=== PATIENT | female | born 1965 ===

== ENCOUNTER 2017-05-05 11:09 | Emergency (ER) | payer MEDICAID ==
[2017-05-05 11:10] VITALS: BMI 32.5
[2017-05-05 11:21] VITALS: O2SAT 96
[2017-05-05] MEDS ORDERED: Sodium Chloride 0.9% 1,000 ML IV ONE (12:09)
[2017-05-05] MEDS ORDERED: Sodium Chloride 0.9% 1,000 ML ONE (12:28)
[2017-05-05 12:29] LABS: BASO % 0.5 % (0.0-2.0); EOS # 0.1 K/uL (0.0-0.7); EOS % 0.9 % (0.0-4.0); HEMATOCRIT 41.3 % (34.0-47.0); LYMPH # 2.2 K/uL (1.0-4.3); LYMPH % 34.9 % (20.0-40.0); MEAN CELL VOLUME 89.5 fL (81.0-99.0); MEAN CORPUSCULAR HEMOGLOBIN 29.4 pg (27.0-31.0); MEAN CORPUSCULAR HGB CONC 32.9 g/dL (33.0-37.0); MEAN PLATELET VOLUME 8.1 fL (7.2-11.7); MONO # 0.7 K/uL (0.0-0.8); MONO % 10.7 % (0.0-10.0); RED CELL DISTRIBUTION WIDTH 13.5 % (11.5-14.5); WHITE BLOOD COUNT 6.2 K/uL (4.8-10.8)
[2017-05-05 12:37] LABS: CHLORIDE 99 mmol/L (98-107); POTASSIUM 4.4 mmol/L (3.6-5.2); SODIUM 139 mmol/L (132-148)
[2017-05-05 12:39] LABS: GFR AFRICAN-AMERICAN > 60
[2017-05-05 12:40] LABS: ALB/GLOB RATIO 1.1 (1.0-2.1); ALKALINE PHOSPHATASE 89 U/L (38-126); ALT/SGPT 45 U/L (9-52); AST/SGOT 31 U/L (14-36); BILIRUBIN,TOTAL 0.5 mg/dL (0.2-1.3); BLOOD UREA NITROGEN 14 mg/dL (7-17); CALCIUM 9.1 mg/dl (8.6-10.4); CARBON DIOXIDE 28 mmol/L (22-30); GLUCOSE,RANDOM 89 mg/dL (65-105); TOTAL PROTEIN 7.2 g/dL (6.3-8.3)
[2017-05-05 12:52] LABS: RBC URINE 5 /hpf (0-3); URINE BACTERIA RARE (<OCC); URINE BILIRUBIN NEGATIVE (NEGATIVE); URINE BLOOD NEGATIVE (NEGATIVE); URINE COLOR Yellow (YELLOW); URINE GLUCOSE (UA) NORMAL (Normal); URINE KETONE NEGATIVE (NEGATIVE); URINE LEUKOCYTE ESTERASE TRACE Leu/uL (Negative); URINE PROTEIN NEGATIVE (NEGATIVE); URINE UROBILINOGEN NORMAL mg/dL (0.2-1.0); WBC URINE 3 /hpf (0-5)
--- NOTE | 2017-05-05 13:17 | C.PDOC ---
History Of Present Illness 52 y/o female, with history of HTN and Depression, presents to the emergency department for evaluation of headache which began around 3 days ago. Patient states her headache is located around the back of her head and radiates down her neck. Patient has not taken any medication for her symptoms. Patient denies fever, chills, vision change, nausea, vomiting, extremity numbness/weakness. Time Seen by Provider: 05/05/17 12:02 Chief Complaint (Nursing): Dizziness/Lightheaded History Per: Patient History/Exam Limitations: no limitations Onset/Duration Of Symptoms: Days (3) Current Symptoms Are (Timing): Still Present Quality: Aching Preceeding Symptoms: denies: Visual Disturbances Associated Symptoms: denies: Photophobia, Blurred Vision, Nausea, Vomiting, Extremity Weakness Additional History Per: Patient Past Medical History Reviewed: Historical Data, Nursing Documentation, Vital Signs Vital Signs: Last Vital Signs Temp 97.3 F L 05/05/17 14:12 Pulse 55 L 05/05/17 14:12 Resp 20 05/05/17 14:12 BP 111/72 05/05/17 14:12 Pulse Ox 96 05/05/17 14:12 - Medical History PMH: Anxiety, Arthritis, Bipolar Disorder, Depression, Diabetes, HTN Denies: Hepatitis, HIV, Chronic Kidney Disease, Seizures, Sexually Transmitted Disease Surgical History: Appendectomy, - [facility] Procedures INJECT/INFUSE NEC (01/05/15) MEDICATION MANAGEMENT (10/11/15) Family History: States: Unknown Family Hx - Social History Hx Tobacco Use: No Hx Alcohol Use: No Hx Substance Use: No - Immunization History Hx Tetanus Toxoid Vaccination: No Hx Influenza Vaccination: Yes (08/2015) Hx Pneumococcal Vaccination: No Review Of Systems Constitutional: Negative for: Fever, Chills Gastrointestinal: Negative for: Nausea, Vomiting Neurological: Positive for: Headache. Negative for: Weakness, Numbness Physical Exam - Physical Exam Appears: Non-toxic, No Acute Distress Skin: Normal Color, Warm, Dry Head: Atraumatic, Normacephalic Eye(s): bilateral: Normal Inspection, PERRL, EOMI Oral Mucosa: Moist Neck: Normal ROM, Supple, Other (no meningeal signs ) Chest: Symmetrical, No Deformity, No Tenderness Cardiovascular: Rhythm Regular, No Murmur Respiratory: Normal Breath Sounds, No Rales, No Rhonchi, No Wheezing Back: Normal Inspection, No Vertebral Tenderness, No Paraspinal Tenderness Extremity: Normal ROM, Capillary Refill (less than 2 seconds ) Neurological/Psych: Oriented x3, Normal Speech, Normal Cognition, Other (no focal deficits ) Gait: Steady ED Course And Treatment - Laboratory Results Result Diagrams: 05/05/17 12:26 05/05/17 12:26 Lab Interpretation: Normal ECG: Interpreted By Me ECG Rhythm: Sinus Bradycardia Rate From EC O2 Sat by Pulse Oximetry: 96 (on RA) Pulse Ox Interpretation: Normal - CT Scan/US No standard instances Other Rad Studies (CT/US): Read By Radiologist, Radiology Report Reviewed CT/US Interpretation: FINDINGS: HEMORRHAGE: No intracranial hemorrhage. BRAIN : No mass effect or edema. No atrophy or chronic microvascular ischemic changes. VENTRICLES: Unremarkable. No hydrocephalus. CALVARIUM: Unremarkable. PARANASAL SINUSES: Moderate left ethmoid and maxillary sinusitis is identified. MASTOID AIR CELLS: Unremarkable as visualized. No inflammatory changes. OTHER FINDINGS: None. IMPRESSION: Normal CT of the Head. I Progress Note: Labs, CT Head, EKG ordered and reviewed. Patient received Reglan IV and IV Fluids. Treated with toradol 30 mg IB. On re-evaluation neuro intact , ambulating with steady gait Reassessment Condition: Improved Disposition Counseled Patient/Family Regarding: Studies Performed, Diagnosis, Need For Followup, Rx Given - Disposition Referrals: [facility] [Outside] [facility] [Outside] Disposition: HOME/ ROUTINE Disposition Time: 14:00 Condition: IMPROVED Prescriptions: Naproxen [Naprosyn] 1 tab PO BID PRN #25 tab PRN Reason: Pain Instructions: Migraine Headache (ED), Acute Headache (ED) Forms: [place] (German) Print Language: KHMER - POA Present On Arrival: None - Clinical Impression Clinical Impression: Headache - 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 - Scribe Statement The provider has reviewed the documentation as recorded by the Scribe (Maryam Gutierrez) All medical record entries made by the Scribe were at my direction and personally dictated by me. I have reviewed the chart and agree that the record accurately reflects my personal performance of the history, physical exam, medical decision making, and the department course for this patient. I have also personally directed, reviewed, and agree with the discharge instructions and disposition.
--- NOTE | 2017-05-05 13:23 | CT ---
PROCEDURE: CT HEAD WITHOUT CONTRAST. HISTORY: headache COMPARISON: None available. TECHNIQUE: Axial computed tomography images were obtained through the head/brain without intravenous contrast. Radiation dose: Total exam DLP = 965 mGy-cm. This CT exam was performed using one or more of the following dose reduction techniques: Automated exposure control, adjustment of the mA and/or kV according to patient size, and/or use of iterative reconstruction technique. FINDINGS: HEMORRHAGE: No intracranial hemorrhage. BRAIN: No mass effect or edema. No atrophy or chronic microvascular ischemic changes. VENTRICLES: Unremarkable. No hydrocephalus. CALVARIUM: Unremarkable. PARANASAL SINUSES: Moderate left ethmoid and maxillary sinusitis is identified. MASTOID AIR CELLS: Unremarkable as visualized. No inflammatory changes. OTHER FINDINGS: None. IMPRESSION: Normal CT of the Head. If symptoms persist or worsen follow-up MRI is advised.
[2017-05-05 14:13] VITALS: BP 111/72; PULSE 55; RESP 20; TEMP 97.3
--- NOTE | 2017-05-11 10:09 | CARD ---
APPROVED REPORT EKG Measurement Heart [id number] <Conclusion> Sinus bradycardia Otherwise normal ECG
== END 2017-05-05 14:21 | disposition home or self-care (01) ==
LOC: C.ER 11:09
DX: R51 Headache (principal)
CPT/HCPCS: 70450; 80053; 81001; 82948; 85025; 96361; 96374; 96375; 99285; J1885; J2765; J7040

== ENCOUNTER 2017-09-14 14:17 | Emergency (ER) | payer MEDICAID ==
[2017-09-14 14:17] VITALS: BMI 32.5
[2017-09-14 14:31] VITALS: BP 121/78; PULSE 69; RESP 14; TEMP 98.3; O2SAT 99
--- NOTE | 2017-09-14 14:40 | C.PDOC ---
History Of Present Illness NEW ONSET BACK PAIN X SEV DAYS ONSET AFTER HEAVY LIFTING. LOWER BACK LOCALIZED NO DIRECT TRAUMA. NO ASSOC WEAK/NUMB. MIN RELIEF W MOTRIN EXAM BACK +SPASM W LOCAL TEND L LOWER BACK NO SPINAL TEND LIMITED FROM NEURO INTACT REMAINDER NEG Time Seen by Provider: 09/14/17 14:32 Chief Complaint (Nursing): Back Pain History Per: Patient History/Exam Limitations: no limitations Onset/Duration Of Symptoms: Sudden Onset (Several days ago) Past Medical History Reviewed: Historical Data, Nursing Documentation, Vital Signs Vital Signs: Last Vital Signs Temp 98.3 F 09/14/17 14:30 Pulse 69 09/14/17 14:30 Resp 14 09/14/17 14:30 BP 121/78 09/14/17 14:30 Pulse Ox 99 09/14/17 14:51 - Medical History PMH: Anxiety, Arthritis, Bipolar Disorder, Depression, Diabetes, HTN Surgical History: Appendectomy, - [facility] Procedures INJECT/INFUSE NEC (01/05/15) MEDICATION MANAGEMENT (10/11/15) Family History: States: No Known Family Hx - Social History Hx Tobacco Use: No Hx Alcohol Use: No Hx Substance Use: No - Immunization History Hx Tetanus Toxoid Vaccination: No Hx Influenza Vaccination: No Hx Pneumococcal Vaccination: No Review Of Systems Gastrointestinal: Negative for: Abdominal Pain, Diarrhea Genitourinary: Negative for: Dysuria Musculoskeletal: Positive for: Back Pain Neurological: Negative for: Weakness, Numbness Physical Exam - Physical Exam Appears: Non-toxic, No Acute Distress Skin: Warm, Dry, No Rash Head: Atraumatic, Normacephalic Oral Mucosa: Moist Neck: Normal, Normal ROM, Supple Back: Decreased ROM, Muscle Spasm (With local tenderness to left lower back.), No Paraspinal Tenderness Extremity: Normal ROM, No Swelling Neurological/Psych: Oriented x3, Normal Speech, Normal Motor ED Course And Treatment O2 Sat by Pulse Oximetry: 99 (RA) Pulse Ox Interpretation: Normal Medical Decision Making Medical Decision Making: PLAN: * Lidoderm TD * Flexeril PO * Tylenol PO * Toradol IM Disposition Counseled Patient/Family Regarding: Diagnosis, Need For Followup, Rx Given - Disposition Referrals: [facility] [Outside] [facility] [Outside] [facility] [Other] Disposition: HOME/ ROUTINE Disposition Time: 14:50 Condition: IMPROVED Additional Instructions: APLICA PARCHE AL LORENE AFECTADA. MAX 3 PARCHES A LA VEZ. RETIRE EL PATCH 12 HORAS DESPUS DE LA APLICACIN INICIAL. ALTERNATIVAS 12 HORAS ACTIVADAS, 12 HORAS DESACTIVADAS. Prescriptions: Acetaminophen [Tylenol Extra Strength] 2 tab PO Q6 #30 tablet Cyclobenzaprine [Flexeril] 10 mg PO TID #15 tab Ibuprofen [Motrin] 600 mg PO Q6 #30 tab Lidocaine 5% [Lidoderm] 1 ea TD PRN PRN #10 patch PRN Reason: Pain, Moderate (4-7) Instructions: Back Pain (ED) Forms: [id number] (Mosotho) Print Language: UPPER SORBIAN - Clinical Impression Clinical Impression: Low back strain - Scribe Statement The provider has reviewed the documentation as recorded by the Scribe Pinky Ch Provider Attestation: All medical record entries made by the Scribe were at my direction and personally dictated by me. I have reviewed the chart and agree that the record accurately reflects my personal performance of the history, physical exam, medical decision making, and the department course for this patient. I have also personally directed, reviewed, and agree with the discharge instructions and disposition.
[2017-09-14] MEDS ORDERED: Lidocaine 5% Patch TD STA (14:52)
== END 2017-09-14 15:10 | disposition home or self-care (01) ==
LOC: C.ER 14:17
DX: S39.012A Strain of muscle, fascia and tendon of lower back, initial encounter (principal); X50.9XXA Other and unspecified overexertion or strenuous movements or postures, initial encounter; Y92.89 Other specified places as the place of occurrence of the external cause

== ENCOUNTER 2018-02-19 09:46 | Emergency (ER) | payer MEDICAID ==
[2018-02-19 09:46] VITALS: BMI 32.5
[2018-02-19 09:55] VITALS: RESP 18
[2018-02-19] MEDS ORDERED: Sodium Chloride 0.9% 1,000 ML IV STA (10:04)
--- NOTE | 2018-02-19 10:25 | C.PDOC ---
Time Seen by Provider: 02/19/18 09:59 Chief Complaint (Nursing): Back Pain Past Medical History Vital Signs: Last Vital Signs Temp 98.5 F 02/19/18 09:51 Pulse 75 02/19/18 09:51 Resp 18 02/19/18 09:51 BP 121/74 02/19/18 09:51 Pulse Ox 97 02/19/18 09:51 - Medical History PMH: Anxiety, Arthritis, Bipolar Disorder, Depression, Diabetes, HTN Denies: Hepatitis, HIV, Chronic Kidney Disease, Seizures, Sexually Transmitted Disease Surgical History: Appendectomy, - [facility] Procedures INJECT/INFUSE NEC (01/05/15) MEDICATION MANAGEMENT (10/11/15) Family History: States: Unknown Family Hx - Social History Hx Tobacco Use: No Hx Alcohol Use: No Hx Substance Use: No - Immunization History Hx Tetanus Toxoid Vaccination: No Hx Influenza Vaccination: No Hx Pneumococcal Vaccination: No ED Course And Treatment O2 Sat by Pulse Oximetry: 97 Disposition - Disposition
--- NOTE | 2018-02-19 10:27 | C.PDOC ---
History Of Present Illness 53 y/o female presents to ED with complaints of right flank pain radiating to right side abdomen intermittently for 1.5 months with associated dysuria. Patient states she has taken unknown antibiotics with no relief and denies fever , chills, vomiting, hematuria or any other complaints at this time. Time Seen by Provider: 02/19/18 09:59 Chief Complaint (Nursing): Back Pain History Per: Patient History/Exam Limitations: no limitations Onset/Duration Of Symptoms: Days Current Symptoms Are (Timing): Still Present Quality Of Discomfort: "Pain" Past Medical History Reviewed: Historical Data, Nursing Documentation, Vital Signs Vital Signs: Last Vital Signs Temp 98 F 02/19/18 13:03 Pulse 78 02/19/18 13:03 Resp 18 02/19/18 13:03 BP 116/73 02/19/18 13:03 Pulse Ox 98 02/19/18 13:03 - Medical History PMH: Anxiety, Arthritis, Bipolar Disorder, Depression, Diabetes, HTN Surgical History: Appendectomy, - [facility] Procedures INJECT/INFUSE NEC (01/05/15) MEDICATION MANAGEMENT (10/11/15) Family History: States: No Known Family Hx - Social History Hx Tobacco Use: No Hx Alcohol Use: No Hx Substance Use: No - Immunization History Hx Tetanus Toxoid Vaccination: No Hx Influenza Vaccination: No Hx Pneumococcal Vaccination: No Review Of Systems Constitutional: Negative for: Fever, Chills Gastrointestinal: Positive for: Abdominal Pain, Other (flank pain). Negative for: Nausea, Vomiting, Diarrhea Genitourinary: Positive for: Dysuria. Negative for: Hematuria Skin: Negative for: Rash Physical Exam - Physical Exam Appears: Non-toxic, Other (Uncomfortable) Skin: Warm, Dry, No Rash Head: Atraumatic, Normacephalic Eye(s): bilateral: Normal Inspection Oral Mucosa: Moist Neck: Normal ROM, Supple Cardiovascular: Rhythm Regular Respiratory: Normal Breath Sounds, No Rales, No Rhonchi, No Wheezing Gastrointestinal/Abdominal: Soft, Tenderness (RUQ), No Guarding, No Rebound Back: CVA Tenderness, No Vertebral Tenderness, No Muscle Spasm Neurological/Psych: Oriented x3, Normal Speech, Normal Cognition ED Course And Treatment - Laboratory Results Result Diagrams: 02/19/18 10:37 02/19/18 10:37 O2 Sat by Pulse Oximetry: 97 (RA) Pulse Ox Interpretation: Normal - CT Scan/US CT abdomen/pelvis Other Rad Studies (CT/US): Read By Radiologist, Radiology Report Reviewed CT/US Interpretation: Accession No. : [id number]. Patient Name / ID : REYNOLD MERAZ A / [id number]. Exam Date : 02/19/2018 10:58:06 ( Approved ). Study Comment : Sex / Age : F / 53Y. Creator : Krystin Geronimo. Dictator : Bottling Room Worker : Inspector Structural Bonding : Dru Blair MD. Approver2 : Report Date : 02/19/2018 11:12:08. My Comment : . PROCEDURE: CT scan abdomen and pelvis 02/19/2018. HISTORY: Right-sided flank pain. COMPARISON: No prior study available for comparison. TECHNIQUE: Contiguous axial images of the abdomen and pelvis performed without oral or intravenous contrast material. Additional 2D sagittal and coronal reformats generated. Radiation dose: Total exam DLP = 1224.86 mGy-cm. This CT exam was performed using one or more of the following dose reduction techniques: Automated exposure control, adjustment of the mA and/or kV according to patient size, and/or use of iterative reconstruction technique. . FINDINGS: LOWER THORAX: Small hiatal hernia. Minor bibasilar atelectasis and or scarring changes. No effusion or basilar pneumothorax. Heart size within range of normal. No significant pericardial effusion. LIVER: Liver is borderline - mildly enlarged measuring nearly 19 cm in CC dimension. Liver demonstrates minimal fatty hepatic infiltration with some sparing of parenchyma about the gallbladder fossa No obvious hepatic mass collection or calcification. GALLBLADDER AND BILE DUCTS: Gallbladder is physiologically distended. Small intraluminal gallbladder calculus best seen on axial image number [id number]. PANCREAS: Exhibits slight fatty replacement. No pancreatic masses collections or calcifications. No significant pancreatic ductal dilatation. SPLEEN: Spleen exhibits normal size and attenuation pattern without mass collection or calcification. ADRENALS: No adrenal lesions seen. KIDNEYS AND URETERS: The the kidneys demonstrate relatively symmetric size. No evidence of nephrolithiasis or hydronephrosis. There is a small approximately 15.3 mm elliptical shaped cyst anterior cortex mid- mid-lower pole left kidney. BLADDER: Urinary bladder incompletely distended which may in part account for slight thick-walled appearance. Rule out cystitis. REPRODUCTIVE: Uterus unremarkable. There is a small left adnexal cyst that measures approximately 3.3 x 2.6 cm. APPENDIX: . Normal normal-appearing appendix of best seen on coronal image number [id number]. No periappendiceal inflammatory changes. The. BOWEL: Unremarkable. No obstruction. No gross mural thickening. PERITONEUM: Unremarkable. No fluid collection. No free air. Small fat containing umbilical hernia. LYMPH NODES: Unremarkable. No enlarged lymph nodes. VASCULATURE: Unremarkable. No aortic aneurysm. BONES: Very minor multilevel degenerative spondylosis. No acute compression fractures no retropulsed fragments. OTHER FINDINGS: None. IMPRESSION: Cholelithiasis. Borderline hepatomegaly. Mild fatty hepatic infiltration. . No evidence of nephrolithiasis or hydronephrosis. Small left renal cyst Urinary bladder incompletely distended which may in part account for thick-walled appearance. Possibility of a cystitis should be excluded. No evidence of acute appendicitis. Small left adnexal cyst. Progress Note: Plan: CT abd/pelvis, IV fluids and Urine Culture ordered. UA consistant with UTI. Patient will be d/c home with PMD follow up. Disposition - Disposition Referrals: Lizandro Chen Jr., MD [Staff Provider] - Peter Stockton MD [Staff Provider] - Dru Mcfadden MD [Staff Provider] - Disposition: HOME/ ROUTINE Disposition Time: 12:28 Condition: STABLE Additional Instructions: Follow up with your PMD and Urologist within 1-2 days. Return to ED if feel worse. 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 - Scribe Statement The provider has reviewed the documentation as recorded by the Geetaibgabriel Rodriguez All medical record entries made by the Scribe were at my direction and personally dictated by me. I have reviewed the chart and agree that the record accurately reflects my personal performance of the history, physical exam, medical decision making, and the department course for this patient. I have also personally directed, reviewed, and agree with the discharge instructions and disposition.
[2018-02-19 10:52] LABS: BASO % 0.5 % (0.0-2.0); EOS % 0.5 % (0.0-4.0); LYMPH # 1.2 K/uL (1.0-4.3); LYMPH % 13.7 % (20.0-40.0); MEAN CELL VOLUME 90.8 fL (81.0-99.0); MEAN CORPUSCULAR HEMOGLOBIN 31.1 pg (27.0-31.0); MEAN CORPUSCULAR HGB CONC 34.3 g/dL (33.0-37.0); MEAN PLATELET VOLUME 8.9 fL (7.2-11.7); MONO # 0.7 K/uL (0.0-0.8); MONO % 7.3 % (0.0-10.0); NEUT # 6.9 K/uL (1.8-7.0); NRBC % 0.1 % (0.0-2.0); RBC 4.5 Mil/uL (3.80-5.20); RED CELL DISTRIBUTION WIDTH 13.7 % (11.5-14.5); WHITE BLOOD COUNT 8.9 K/uL (4.8-10.8)
[2018-02-19 10:56] LABS: SQUAMOUS EPITHIAL 12 /hpf (0-5); URINE BACTERIA RARE (<OCC); URINE BILIRUBIN NEGATIVE (NEGATIVE); URINE BLOOD NEGATIVE (NEGATIVE); URINE CLARITY Hazy (Clear); URINE COLOR Amber (YELLOW); URINE GLUCOSE (UA) NORMAL (Normal); URINE LEUKOCYTE ESTERASE 1+ Leu/uL (Negative); URINE PROTEIN NEGATIVE (NEGATIVE)
[2018-02-19 11:08] LABS: ALBUMIN 4.1 g/dL (3.5-5.0); ALT/SGPT 28 U/L (9-52); AST/SGOT 35 U/L (14-36); BLOOD UREA NITROGEN 15 mg/dL (7-17); CALCIUM 9.8 mg/dl (8.6-10.4); GFR AFRICAN-AMERICAN > 60; GFR NON-AFRICAN AMERICAN > 60; LIPASE 130 U/L (23-300)
--- NOTE | 2018-02-19 11:59 | CT ---
PROCEDURE: CT scan abdomen and pelvis 02/19/2018 HISTORY: Right-sided flank pain. COMPARISON: No prior study available for comparison TECHNIQUE: Contiguous axial images of the abdomen and pelvis performed without oral or intravenous contrast material. Additional 2D sagittal and coronal reformats generated. Radiation dose: Total exam DLP = 1224.86 mGy-cm. This CT exam was performed using one or more of the following dose reduction techniques: Automated exposure control, adjustment of the mA and/or kV according to patient size, and/or use of iterative reconstruction technique. . FINDINGS: LOWER THORAX: Small hiatal hernia. Minor bibasilar atelectasis and or scarring changes. No effusion or basilar pneumothorax. Heart size within range of normal. No significant pericardial effusion. LIVER: Liver is borderline - mildly enlarged measuring nearly 19 cm in CC dimension. Liver demonstrates minimal fatty hepatic infiltration with some sparing of parenchyma about the gallbladder fossa No obvious hepatic mass collection or calcification. GALLBLADDER AND BILE DUCTS: Gallbladder is physiologically distended. Small intraluminal gallbladder calculus best seen on axial image number [id number]. PANCREAS: Exhibits slight fatty replacement. No pancreatic masses collections or calcifications. No significant pancreatic ductal dilatation. SPLEEN: Spleen exhibits normal size and attenuation pattern without mass collection or calcification. ADRENALS: No adrenal lesions seen KIDNEYS AND URETERS: The the kidneys demonstrate relatively symmetric size. No evidence of nephrolithiasis or hydronephrosis. There is a small approximately 15.3 mm elliptical shaped cyst anterior cortex mid- mid-lower pole left kidney. BLADDER: Urinary bladder incompletely distended which may in part account for slight thick-walled appearance. Rule out cystitis. REPRODUCTIVE: Uterus unremarkable. There is a small left adnexal cyst that measures approximately 3.3 x 2.6 cm. APPENDIX: . Normal normal-appearing appendix of best seen on coronal image number [id number]. No periappendiceal inflammatory changes. The BOWEL: Unremarkable. No obstruction. No gross mural thickening. PERITONEUM: Unremarkable. No fluid collection. No free air. Small fat containing umbilical hernia. LYMPH NODES: Unremarkable. No enlarged lymph nodes. VASCULATURE: Unremarkable. No aortic aneurysm. BONES: Very minor multilevel degenerative spondylosis. No acute compression fractures no retropulsed fragments. OTHER FINDINGS: None. IMPRESSION: Cholelithiasis. Borderline hepatomegaly. Mild fatty hepatic infiltration. . No evidence of nephrolithiasis or hydronephrosis. Small left renal cyst Urinary bladder incompletely distended which may in part account for thick-walled appearance. Possibility of a cystitis should be excluded. No evidence of acute appendicitis. Small left adnexal cyst.
[2018-02-19 13:03] VITALS: BP 116/73; PULSE 78; TEMP 98
[2018-02-19 18:14] VITALS: O2SAT 97
== END 2018-02-19 13:03 | disposition home or self-care (01) ==
LOC: C.ER 09:46
DX: N39.0 Urinary tract infection, site not specified (principal); K80.20 Calculus of gallbladder without cholecystitis without obstruction
CPT/HCPCS: 74176; 80053; 81001; 83690; 85025; 87086; 96374; 99284; J1885; J7040